=== PATIENT | female | born 1975 | race Caucasian/White ===

== ENCOUNTER 2017-09-06 18:15 | Inpatient (IN) | payer OTHER ==
[2017-09-06] VITALS (9 sets, daily range): BP systolic 116–143; BP diastolic 62–84; PULSE 76–90; RESP 15–20; TEMP 98.3; O2SAT 94–98
[~2017-09-06] VITALS: Ht 175.3 cm; Wt 82.2 kg
[~2017-09-06 18:15] MED LIST: ALPR1TAB3 PO; ATEN-100 PO; DICY1TAB26 PO; GABA600T PO; HYDR-3533 PO
[2017-09-06] MEDS ORDERED: IOHEXOL 350 MG/ML 10 ML VIAL (for RAD DIAG) IVCONTRAST ONE (18:37)
[2017-09-06 18:48] LABS: PROTHROMBIN TIME - PATIENT 10.2 SEC (9.8-11.6)
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
[2017-09-06] MEDS ORDERED: CHLORHEXIDINE GLUCONATE 2 % 1 PACK (2 CLOTHS) TOP PRN (19:00)
[2017-09-06] MEDS ORDERED: MISCELLANEOUS NURSING INFORMATION XX SCH (19:00)
[2017-09-06] MEDS ORDERED: MORPHINE SULFATE 4 MG/ML INJ IV PUSH PRN (19:00)
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
[2017-09-06] MEDS: ACETAMINOPHEN 1000 MG/100 ML 100 ML IV SCH (20:37)
[2017-09-06] MEDS: LACTATED RINGER'S 1000 ML INJ 1,000 ML IV SCH (20:46)
[2017-09-06] MEDS: DOCUSATE SODIUM 100 MG CAP PO SCH (21:00)
[2017-09-06] MEDS: MORPHINE SULFATE 8 MG/ML INJ IV PUSH PRN (21:39)
[2017-09-06 23:19] LABS: AUTOMATED NEUTROPHIL # 11.9 TH/MM3 (1.8-7.7); BASOPHIL # 0.2 TH/MM3 (0-0.2); BASOPHIL % 1.1 % (0.0-2.0); EOSINOPHIL # 0.1 TH/MM3 (0-0.4); EOSINOPHIL % 0.5 % (0.0-4.0); HEMATOCRIT 40.4 % (35.0-46.0); HEMOGLOBIN 13.7 GM/DL (11.6-15.3); LYMPH % 15.7 % (9.0-44.0); LYMPHOCYTE # 2.4 TH/MM3 (1.0-4.8); MEAN CELL VOLUME 89.3 FL (80.0-100.0); MEAN CORPUSCULAR HEMOGLOBIN 30.4 PG (27.0-34.0); MEAN PLATELET VOLUME 8.5 FL (7.0-11.0); MONO % 5.8 % (0.0-8.0); MONOCYTE # 0.9 TH/MM3 (0-0.9); NEUT % 76.9 % (16.0-70.0); PLATELET COUNT 318 TH/MM3 (150-450); RED BLOOD COUNT 4.52 MIL/MM3 (4.00-5.30); RED CELL DISTRIBUTION WIDTH 13.5 % (11.6-17.2); WHITE BLOOD COUNT 15.5 TH/MM3 (4.0-11.0)
[2017-09-07] MEDS: MORPHINE SULFATE 8 MG/ML INJ IV PUSH PRN ×4 (00:21→09:34)
[2017-09-07] MEDS: ACETAMINOPHEN 1000 MG/100 ML 100 ML IV SCH ×3 (00:29→13:43)
[2017-09-07] MEDS ORDERED: CHLORHEXIDINE GLUCONATE 2 % 1 PACK (2 CLOTHS) TOP SCH (04:00)
[2017-09-07] MEDS: LACTATED RINGER'S 1000 ML INJ 1,000 ML IV SCH (06:32)
[2017-09-07] MEDS ORDERED: MORPHINE SULFATE 4 MG/ML INJ IV PUSH ONE (07:35)
[2017-09-07 07:45] VITALS: BP 108/64; PULSE 77; RESP 19; TEMP 98.4; O2SAT 96
[2017-09-07 08:17] VITALS: O2SAT 98
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
[2017-09-07] MEDS: DOCUSATE SODIUM 100 MG CAP PO SCH (09:00)
[2017-09-07] MEDS ORDERED: POVIDONE IODINE 5% (ANTISEPSIS KIT) 4 APPLICATIONS EACH NARE PRN (10:00)
[2017-09-07] MEDS ORDERED: CHLORHEXIDINE GLUCONATE 2 % 1 PACK (2 CLOTHS) TOPICAL PRN (10:00)
[2017-09-07] MEDS ORDERED: SODIUM CHLORID 0.9% 500 ML IV PRN (10:00)
[2017-09-07] MEDS ORDERED: LACTATED RINGER'S 1000 ML IV PRN (10:00)
[2017-09-07] MEDS ORDERED: HYDROmorphone HCL PF 2 MG/ML VIAL IV PUSH PRN (10:00)
[2017-09-07] MEDS ORDERED: METOPROLOL TARTRATE 25 MG TAB PO PRN (10:00)
[2017-09-07 10:26] LABS: BICARBONATE 25.6 MEQ/L (21.0-32.0); CALCIUM 8.4 MG/DL (8.5-10.1); CREATININE 0.55 MG/DL (0.50-1.00)
[2017-09-07 10:27] LABS: AUTOMATED NEUTROPHIL # 7.6 TH/MM3 (1.8-7.7); BASOPHIL # 0.1 TH/MM3 (0-0.2); BASOPHIL % 0.9 % (0.0-2.0); EOSINOPHIL # 0.1 TH/MM3 (0-0.4); EOSINOPHIL % 0.7 % (0.0-4.0); HEMATOCRIT 36.8 % (35.0-46.0); HEMOGLOBIN 12.9 GM/DL (11.6-15.3); LYMPH % 16.8 % (9.0-44.0); LYMPHOCYTE # 1.8 TH/MM3 (1.0-4.8); MEAN CELL VOLUME 89.6 FL (80.0-100.0); MEAN CORPUSCULAR HEMOGLOBIN 31.4 PG (27.0-34.0); MEAN PLATELET VOLUME 8.7 FL (7.0-11.0); MONO % 9.3 % (0.0-8.0); NEUT % 72.3 % (16.0-70.0); PLATELET COUNT 259 TH/MM3 (150-450); RED BLOOD COUNT 4.11 MIL/MM3 (4.00-5.30); RED CELL DISTRIBUTION WIDTH 13.6 % (11.6-17.2); WHITE BLOOD COUNT 10.5 TH/MM3 (4.0-11.0)
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
[2017-09-07] MEDS: HYDROmorphone HCL PF 2 MG/ML VIAL IV PUSH PRN ×3 (11:13→17:13)
[2017-09-07] MEDS ORDERED: DEXAMETHASONE SOD PHOS 4 MG/ML VIAL IV ONE (12:00)
[2017-09-07] MEDS ORDERED: LIDOCAINE HCL 1% PF 5 ML SYRINGE OTHER ONE (12:00)
[2017-09-07] MEDS ORDERED: ONDANSETRON HCL 4 MG/2 ML VIAL IV PUSH ONE (12:00)
[2017-09-07] MEDS ORDERED: ePHEDrine/NS 25 MG/5 ML SYRINGE IV ONE (12:00)
[2017-09-07] MEDS ORDERED: LACTATED RINGER'S 1000 ML INJ 1,000 ML IV ONE (12:00)
[2017-09-07] MEDS ORDERED: PHENYLEPH/NS 1000 MCG/10 ML SYR IV ONE (12:00)
[2017-09-07] MEDS ORDERED: ceFAZolin INJ 1,000 MG VIAL IV ONE ×2 (12:00→19:40)
[2017-09-07] MEDS ORDERED: PROPOFOL 200 MG/20 ML AMP IV ONE (12:00)
[2017-09-07 12:43] VITALS: BP 115/64; PULSE 66; RESP 18; TEMP 98.3; O2SAT 96
[2017-09-07 16:16] VITALS: BP 124/74; PULSE 78; RESP 18; TEMP 98.4; O2SAT 97
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
[2017-09-07] MEDS ORDERED: ENALAPRILAT 1.25 MG/ML VIAL IV PUSH PRN (19:15)
[2017-09-07] MEDS ORDERED: ONDANSETRON HCL 4 MG/2 ML VIAL IV PUSH PRN (19:15)
[2017-09-07] MEDS ORDERED: LACTULOSE SYRUP 20 GM/30 ML CUP PO PRN (19:15)
[2017-09-07] MEDS ORDERED: ACETAMINOPHEN 325 MG TAB PO PRN (19:15)
[2017-09-07] MEDS: BACITRACIN TOP OINT 15 GM TUBE TOP SCH (21:00)
[2017-09-07] MEDS: DOCUSATE SODIUM 50 MG/SENNA 8.6 MG TAB PO SCH (21:00)
[2017-09-07] MEDS ORDERED: DO NOT ADM ANY ANTICOAGULANT DRUGS PRN (22:00)
[2017-09-07] MEDS: METHOCARBAMOL 500 MG TAB PO SCH (22:00)
--- NOTE | 2017-09-07 22:09 | RADRPT ---
EXAM DATE/TIME: 09/07/2017 21:05 [facility] COMPARISON: No previous studies available for comparison. INDICATIONS : Right ankle ORIF. MEDICAL HISTORY : None. SURGICAL HISTORY : None. ENCOUNTER: Initial ACUITY: 1 day PAIN SCORE: Non-responsive. LOCATION: Right Ankle. FINDINGS: 4 images from the OR have been submitted. There is a plate along the lateral distal fibula. There are 2 screws seen through the medial malleolus. A long screw is seen to extend through the lateral plate , the distal fibula and the distal tibia. On the final images, the ankle is well aligned. The hardwar e is well-placed. CONCLUSION: Successful ORIF. Jacoby Bolton MD on September 07, 2017 at 22:06 Board Certified Radiologist. This report was verified electronically.
[2017-09-07] MEDS ORDERED: ACETAMINOPHEN/HYDROcodone 325 MG/10 MG TAB PO PRN (22:15)
[2017-09-07] MEDS ORDERED: MORPHINE SULFATE 4 MG/ML INJ ONE (22:17)
[2017-09-07] MEDS ORDERED: *MEPERIDINE 25 MG INJ VIAL PERIprocedural Use ONLY ONE (22:19)
[2017-09-07] MEDS ORDERED: *morphine SULFATE 8 MG/ML PERIprocedure ONLY ONE (22:36)
[2017-09-08] VITALS (7 sets, daily range): BP systolic 127–136; BP diastolic 66–80; PULSE 79–91; RESP 18–21; TEMP 97.8–99.4; O2SAT 93–97
[2017-09-08] MEDS: HYDROmorphone HCL PF 2 MG/ML VIAL IV PUSH PRN ×5 (02:21→20:03)
[2017-09-08 04:15] LABS: AUTOMATED NEUTROPHIL # 10.7 TH/MM3 (1.8-7.7); BASOPHIL # 0.1 TH/MM3 (0-0.2); BASOPHIL % 0.4 % (0.0-2.0); HEMATOCRIT 36.2 % (35.0-46.0); HEMOGLOBIN 12.2 GM/DL (11.6-15.3); LYMPH % 6.5 % (9.0-44.0); LYMPHOCYTE # 0.8 TH/MM3 (1.0-4.8); MEAN CELL VOLUME 88.9 FL (80.0-100.0); MEAN CORPUSCULAR HEMOGLOBIN 30.1 PG (27.0-34.0); MEAN CORPUSCULAR HGB CONC 33.8 % (32.0-36.0); MEAN PLATELET VOLUME 8.6 FL (7.0-11.0); MONO % 6.7 % (0.0-8.0); MONOCYTE # 0.8 TH/MM3 (0-0.9); NEUT % 86.4 % (16.0-70.0); PLATELET COUNT 249 TH/MM3 (150-450); RED BLOOD COUNT 4.07 MIL/MM3 (4.00-5.30); RED CELL DISTRIBUTION WIDTH 13.6 % (11.6-17.2); WHITE BLOOD COUNT 12.4 TH/MM3 (4.0-11.0)
[2017-09-08] MEDS: ACETAMINOPHEN/HYDROcodone 325 MG/10 MG TAB PO PRN ×5 (04:21→23:48)
[2017-09-08 04:35] LABS: BICARBONATE 25.8 MEQ/L (21.0-32.0); CALCIUM 8.1 MG/DL (8.5-10.1); CREATININE 0.46 MG/DL (0.50-1.00)
[2017-09-08] MEDS: ENOXAPARIN SODIUM 40 MG/0.4 ML SYRINGE SQ SCH (06:14)
[2017-09-08] MEDS: METHOCARBAMOL 500 MG TAB PO SCH ×3 (06:15→20:04)
[2017-09-08] MEDS: DOCUSATE SODIUM 50 MG/SENNA 8.6 MG TAB PO SCH ×2 (08:16→20:04)
[2017-09-08] MEDS: GABAPENTIN 300 MG CAP PO SCH ×3 (08:16→16:27)
[2017-09-08] MEDS: BACITRACIN TOP OINT 15 GM TUBE TOP SCH ×3 (08:20→20:04)
[2017-09-08] MEDS: fentaNYL 50 MCG/HR PATCH T-DERMAL SCH (12:47)
[2017-09-08] MEDS: KETOROLAC TROMETHAMINE 30 MG/ML (IVP) VIAL IV PUSH SCH ×3 (12:49→23:47)
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
--- NOTE | 2017-09-08 16:43 | RADRPT ---
EXAM DATE/TIME: 09/08/2017 14:58 [facility] COMPARISON: No previous studies available for comparison. INDICATIONS : Bilateral upper extremity numbness. MEDICAL HISTORY : Carcinoma, cervical SURGICAL HISTORY : section. ENCOUNTER: Initial ACUITY: 1 day PAIN SCORE: 0/10 LOCATION: Paraspinal TECHNIQUE: Multiplanar, multisequence MRI examination of the cervical spine was performed. FINDINGS: At C2-3-4 there is no significant abnormality At C4-5 there is a mild posterior disc bulge with a small focal protrusion on the left side resulting in a minimal impression on the left hemicord and mild narrowing of the left lateral recess. At C5-6 is a broad-based posterior disc protrusion, slightly worse on the right side with mild AP can al stenosis and mild impression on the right hemicord. No significant foraminal stenosis. At C6-C7-T1 there is no significant abnormality. Normal alignment. No cord signal abnormalities. No prevertebral soft tissue swelling. CONCLUSION: 1. At C5-6 broad-based posterior disc protrusion slightly worse on the right side results in mild AP canal stenosis and mild compression on the right hemicord. 2. At C4-5 mild posterior disc bulge with small left paracentral protrusion results in a minimal impr ession on the left hemicord. Margarito Soriano MD on September 08, 2017 at 16:37 Board Certified Radiologist. This report was verified electronically.
[2017-09-09] VITALS (7 sets, daily range): BP systolic 117–163; BP diastolic 63–93; PULSE 81–94; RESP 18–21; TEMP 98–98.5; O2SAT 94–98
[2017-09-09] MEDS: HYDROmorphone HCL PF 2 MG/ML VIAL IV PUSH PRN ×4 (01:02→20:56)
[2017-09-09] MEDS: ACETAMINOPHEN/HYDROcodone 325 MG/10 MG TAB PO PRN ×4 (04:08→23:32)
[2017-09-09] MEDS: METHOCARBAMOL 500 MG TAB PO SCH ×3 (06:08→22:00)
[2017-09-09] MEDS: ENOXAPARIN SODIUM 40 MG/0.4 ML SYRINGE SQ SCH (06:08)
[2017-09-09] MEDS: KETOROLAC TROMETHAMINE 30 MG/ML (IVP) VIAL IV PUSH SCH ×4 (06:09→23:32)
[2017-09-09] MEDS: GABAPENTIN 300 MG CAP PO SCH ×3 (08:20→18:11)
[2017-09-09] MEDS: BACITRACIN TOP OINT 15 GM TUBE TOP SCH ×2 (08:22→21:00)
[2017-09-09] MEDS: DOCUSATE SODIUM 50 MG/SENNA 8.6 MG TAB PO SCH ×2 (08:22→20:51)
--- NOTE | 2017-09-09 12:10 | PD.POD ---
Subjective Podiatric Problems POD #2 right ankle bimalleolar, syndesmotic stabilization and deltoid repair. Pt states her pain is still very present, but well controlled with pain meds. She denies any n/v/f/h/c/sob. Pain score: 7 Past Med/Surg/Social History Social History Smoking Status: Current Every Day Smoker Objective Vital Signs Vital Signs Date Time Temp Pulse Resp B/P (MAP) Pulse Ox O2 Delivery O2 Flow Rate FiO2 09/09/17 08:00 98.0 94 18 124/63 (83) 98 09/09/17 07:00 18 09/09/17 04:48 19 09/09/17 04:00 98.5 81 20 128/70 (89) 97 09/09/17 01:35 18 09/09/17 00:00 98.5 83 20 117/63 (81) 98 09/08/17 22:06 Room Air 09/08/17 20:00 99.4 88 21 130/67 (88) 96 09/08/17 16:00 98.4 84 18 134/78 (96) 95 09/08/17 12:00 98.1 91 21 136/79 (98) 97 Coded Allergies: diphenhydramine (Verified Adverse Reaction, Severe, 09/07/17) Physical Exam Remarks RLE incision sites are well coapted all mandy in tact, mod edema, mild sanginous drainage, mild ecchymosis, calf is supple and non tender to compression Assessment & Plan A/P 1) RLE POD # 2 right ankle ORIF 2) LLE grade II ankle sprain -ice and elevate b/l LE -NWBing RLE, WBAT in CAM LLE -cont pain meds as per trauma doc -ok for d/c from podiatry standpoint once cleared by PT -needs 6 weeks of lovenox on d/c -f/u with 1 week after d/c Brianne Bhagat DPM Sep 09, 2017 12:10
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
[2017-09-09] MEDS ORDERED: XANA1TAB2 PO (19:25)
[2017-09-09] MEDS: ALPRAZolam 1 MG TAB PO PRN (20:51)
[2017-09-10] VITALS (8 sets, daily range): BP systolic 104–148; BP diastolic 64–88; PULSE 82–92; RESP 18–19; TEMP 98.2–98.8; O2SAT 94–99
[2017-09-10] MEDS: ACETAMINOPHEN/HYDROcodone 325 MG/10 MG TAB PO PRN ×5 (03:27→23:47)
[2017-09-10] MEDS: METHOCARBAMOL 500 MG TAB PO SCH ×3 (05:11→22:49)
[2017-09-10] MEDS: ALPRAZolam 1 MG TAB PO PRN ×2 (05:11→20:24)
[2017-09-10] MEDS: KETOROLAC TROMETHAMINE 30 MG/ML (IVP) VIAL IV PUSH SCH ×4 (05:11→23:47)
[2017-09-10] MEDS: ENOXAPARIN SODIUM 40 MG/0.4 ML SYRINGE SQ SCH (06:04)
[2017-09-10] MEDS: DOCUSATE SODIUM 50 MG/SENNA 8.6 MG TAB PO SCH ×2 (07:32→20:24)
[2017-09-10] MEDS: GABAPENTIN 300 MG CAP PO SCH ×3 (07:32→17:36)
[2017-09-10] MEDS: BACITRACIN TOP OINT 15 GM TUBE TOP SCH ×2 (07:34→21:00)
[2017-09-10] MEDS: HYDROmorphone HCL PF 2 MG/ML VIAL IV PUSH PRN ×3 (10:49→20:24)
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
[2017-09-10] MEDS ORDERED: RESP: ALBUTEROL 2.5 MG/IPRATROPIUM 0.5 MG NEB (PRN) NEB (14:00)
--- NOTE | 2017-09-10 14:43 | RADRPT ---
EXAM DATE/TIME: 09/10/2017 13:13 [facility] COMPARISON: No previous studies available for comparison. INDICATIONS : Vision changes. Dizziness. MEDICAL HISTORY : Hernia, hiatal. Arthritis. Hypertension. Thyroid disease. Syncope. Migraines. Chest pain. Cervical ca ncer. Paresthesia. Anxiety. SURGICAL HISTORY : section. Chest tube. ENCOUNTER: Initial ACUITY: 1 day PAIN SCORE: 0/10 LOCATION: Bilateral neck PEAK SYSTOLIC VELOCITIES (cm/sec): ICA/CCA RATIO: Right: 1.4 Left: 0.9 ICA: Right: 81 Left: 81 CCA: Right: 59 Left: 85 ECA: Right: 72 Left: 74 VERTEBRAL: Right: 63 antegrade Left: 50 antegrade Elevated flow velocities and ICA/CCA ratios have been found to correlate with increased degrees of vessel stenosis, calculated as percentage of diameter relative to a normal segment of distal ICA/CCA FINDINGS: RIGHT CAROTID: No significant stenosis is visualized. The waveforms are within normal limits. LEFT CAROTID: No significant stenosis is visualized. The waveforms are within normal limits. VERTEBRAL ARTERIES: Antegrade flow is seen in both vertebral arteries. MISCELLANEOUS: None. CONCLUSION: 1. Negative examination. Calixto Basilio MD on September 10, 2017 at 14:40 Board Certified Radiologist. This report was verified electronically.
[2017-09-11 00:15] VITALS: BP 141/72; PULSE 94; RESP 18; TEMP 97.4; O2SAT 96
[2017-09-11] MEDS: HYDROmorphone HCL PF 2 MG/ML VIAL IV PUSH PRN ×4 (03:47→20:11)
[2017-09-11] MEDS: ALPRAZolam 1 MG TAB PO PRN ×2 (05:47→16:50)
[2017-09-11] MEDS: ACETAMINOPHEN/HYDROcodone 325 MG/10 MG TAB PO PRN ×4 (05:48→22:51)
[2017-09-11] MEDS: METHOCARBAMOL 500 MG TAB PO SCH ×3 (05:48→22:38)
[2017-09-11] MEDS: KETOROLAC TROMETHAMINE 30 MG/ML (IVP) VIAL IV PUSH SCH ×4 (05:48→23:50)
[2017-09-11] MEDS: ENOXAPARIN SODIUM 40 MG/0.4 ML SYRINGE SQ SCH (06:40)
[2017-09-11] MEDS ORDERED: ENOX40P SQ (07:40)
[2017-09-11] MEDS ORDERED: PERI PO (07:40)
[2017-09-11 08:00] VITALS: BP 109/70; PULSE 78; RESP 16; TEMP 97.7; O2SAT 98
[2017-09-11] MEDS: DOCUSATE SODIUM 50 MG/SENNA 8.6 MG TAB PO SCH ×2 (08:55→20:12)
[2017-09-11] MEDS: GABAPENTIN 300 MG CAP PO SCH ×3 (08:55→16:51)
[2017-09-11] MEDS: BACITRACIN TOP OINT 15 GM TUBE TOP SCH ×2 (08:57→21:00)
[2017-09-11] MEDS: REMOVE OLD DURAGESIC (FENTANYL) PATCH T-DERMAL SCH (11:11)
[2017-09-11] MEDS: fentaNYL 50 MCG/HR PATCH T-DERMAL SCH (11:11)
[2017-09-11 12:00] VITALS: BP 145/70; PULSE 89; RESP 16; TEMP 99.3; O2SAT 97
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
[2017-09-11 16:00] VITALS: BP 114/73; PULSE 89; RESP 16; TEMP 98.3; O2SAT 97
[2017-09-11 19:12] VITALS: BP 134/63; PULSE 92; RESP 18; TEMP 98.3; O2SAT 98
[2017-09-11 23:58] VITALS: BP 130/69; PULSE 81; RESP 18; TEMP 98.3; O2SAT 96
[2017-09-12] MEDS: ACETAMINOPHEN/HYDROcodone 325 MG/10 MG TAB PO PRN ×4 (03:59→19:18)
[2017-09-12] MEDS: ALPRAZolam 1 MG TAB PO PRN ×2 (03:59→11:57)
[2017-09-12] MEDS: METHOCARBAMOL 500 MG TAB PO SCH ×3 (05:31→22:29)
[2017-09-12] MEDS: KETOROLAC TROMETHAMINE 30 MG/ML (IVP) VIAL IV PUSH SCH ×2 (05:33→11:58)
[2017-09-12] MEDS: ENOXAPARIN SODIUM 40 MG/0.4 ML SYRINGE SQ SCH (06:21)
[2017-09-12 08:00] VITALS: BP 101/58; PULSE 73; RESP 16; TEMP 97.2; O2SAT 94
[2017-09-12] MEDS: DOCUSATE SODIUM 50 MG/SENNA 8.6 MG TAB PO SCH ×2 (08:18→21:00)
[2017-09-12] MEDS: GABAPENTIN 300 MG CAP PO SCH ×3 (08:18→17:49)
[2017-09-12] MEDS: HYDROmorphone HCL PF 2 MG/ML VIAL IV PUSH PRN ×5 (08:19→21:33)
[2017-09-12] MEDS: BACITRACIN TOP OINT 15 GM TUBE TOP SCH ×2 (08:19→21:16)
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
[2017-09-12 12:00] VITALS: BP 105/69; PULSE 99; RESP 16; TEMP 98.4; O2SAT 97
[2017-09-12 13:41] LABS: HEMATOCRIT 33.6 % (35.0-46.0); HEMOGLOBIN 11.3 GM/DL (11.6-15.3); MEAN CELL VOLUME 89.3 FL (80.0-100.0); MEAN CORPUSCULAR HGB CONC 33.5 % (32.0-36.0); MEAN PLATELET VOLUME 7.9 FL (7.0-11.0); PLATELET COUNT 335 TH/MM3 (150-450); RED BLOOD COUNT 3.76 MIL/MM3 (4.00-5.30); RED CELL DISTRIBUTION WIDTH 13.3 % (11.6-17.2); WHITE BLOOD COUNT 9.1 TH/MM3 (4.0-11.0)
[2017-09-12] MEDS ORDERED: PANTOPRAZOLE SODIUM 40 MG VIAL IV PUSH SCH (14:00)
[2017-09-12 16:00] VITALS: BP 103/60; PULSE 85; RESP 16; TEMP 98.3; O2SAT 97
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
[2017-09-12] MEDS: PANTOPRAZOLE INJ 80 MG in SODIUM CHLORIDE 0.9% INJ 100 ML IV SCH (17:49)
[2017-09-12 20:00] VITALS: BP 111/57; PULSE 101; RESP 16; TEMP 98.9; O2SAT 96
[2017-09-12] MEDS: ONDANSETRON HCL 4 MG/2 ML VIAL IV PUSH PRN (21:15)
[2017-09-12] MEDS ORDERED: LORazepam 2 MG/ML VIAL IV PUSH ONE (22:15)
--- NOTE | 2017-09-12 22:17 | HHI.NSPN ---
History Chief Complaint: right arm and shoulder pain Interval History Today she states that the right arm and shoulder pain is quite a bit better. Movement has improved Exam Results Vital Signs Date Time Temp Pulse Resp B/P (MAP) Pulse Ox O2 Delivery O2 Flow Rate FiO2 09/12/17 20:00 98.9 101 16 111/57 (75) 96 09/09/17 21:54 21 09/09/17 20:00 Room Air Intake and Output 09/12/17 09/12/17 09/12/17 07:59 15:59 23:59 Intake Total 840 ml 600 ml Balance 840 ml 600 ml Physical Examination Awake and alert. Appears less tearful and depressed today. Moderate discomfort over the right biceps and deltoid with active and passive right shoulder abduction and external rotation. Strength is mostly 3/5 right deltoid with complaint of pain with testing. 4/5 right biceps, 5/5 right triceps and hand intrinsics Good strength left upper extremity Angélica's response absent bilateral No Ankle clonus Medical Decision Making Impression and Plan Impression: 1. Right arm and shoulder pain-most likely deltoid-biceps tendinopathy. No definite cervical radiculopathy. Plan: Continue physical therapy Improving with present treatment No surgical intervention planned Wilfredo Contreras MD Sep 12, 2017 22:16
--- NOTE | 2017-09-12 22:17 | RADRPT ---
EXAM DATE/TIME: 09/12/2017 21:55 [facility] COMPARISON: No previous studies available for comparison. INDICATIONS : NG tube placement. MEDICAL HISTORY : Hernia, hiatal. Arthritis. Hypertension. Thyroid disease. Syncope. Cervical cancer. Paresthesia. SURGICAL HISTORY : section. Chest tube. ENCOUNTER: Subsequent ACUITY: 1 day PAIN SCORE: 0/10 LOCATION: Abdomen, upper quadrant. FINDINGS: Examination of the abdomen demonstrates a normal bowel gas pattern. Nasogastric tube in the antrum o f the stomach No free air is identified. No organomegaly is evident. Osseous structures are intact. CONCLUSION: NG tube in antrum. Joahn Basilio MD FACR on September 12, 2017 at 22:15 Board Certified Radiologist. This report was verified electronically.
[2017-09-12 23:32] LABS: HEMATOCRIT 30.4 % (35.0-46.0); HEMOGLOBIN 10.3 GM/DL (11.6-15.3)
[2017-09-13] VITALS (12 sets, daily range): BP systolic 97–125; BP diastolic 53–66; PULSE 100–124; RESP 11–20; TEMP 98.5–99.4; O2SAT 93–100
[2017-09-13] MEDS: HYDROmorphone HCL PF 2 MG/ML VIAL IV PUSH PRN ×7 (01:36→23:33)
[2017-09-13] MEDS: ONDANSETRON HCL 4 MG/2 ML VIAL IV PUSH PRN ×6 (01:37→23:34)
[2017-09-13] MEDS: ALPRAZolam 1 MG TAB PO PRN (01:37)
[2017-09-13] MEDS: METHOCARBAMOL 500 MG TAB PO SCH ×3 (03:39→22:00)
[2017-09-13] MEDS: LACTATED RINGER'S 1000 ML INJ 1,000 ML IV SCH ×3 (04:00→20:09)
[2017-09-13] MEDS: PANTOPRAZOLE INJ 80 MG in SODIUM CHLORIDE 0.9% INJ 100 ML IV SCH ×2 (04:09→16:05)
[2017-09-13 07:06] LABS: AUTOMATED NEUTROPHIL # 8.4 TH/MM3 (1.8-7.7); BASOPHIL # 0.1 TH/MM3 (0-0.2); BASOPHIL % 0.7 % (0.0-2.0); EOSINOPHIL # 0.1 TH/MM3 (0-0.4); EOSINOPHIL % 0.5 % (0.0-4.0); HEMATOCRIT 27.1 % (35.0-46.0); LYMPH % 16.7 % (9.0-44.0); LYMPHOCYTE # 1.9 TH/MM3 (1.0-4.8); MEAN CELL VOLUME 90.1 FL (80.0-100.0); MEAN CORPUSCULAR HEMOGLOBIN 30.1 PG (27.0-34.0); MEAN CORPUSCULAR HGB CONC 33.4 % (32.0-36.0); MEAN PLATELET VOLUME 8.5 FL (7.0-11.0); MONO % 6.9 % (0.0-8.0); MONOCYTE # 0.8 TH/MM3 (0-0.9); NEUT % 75.2 % (16.0-70.0); PLATELET COUNT 353 TH/MM3 (150-450); RED BLOOD COUNT 3.01 MIL/MM3 (4.00-5.30); RED CELL DISTRIBUTION WIDTH 13.3 % (11.6-17.2); WHITE BLOOD COUNT 11.2 TH/MM3 (4.0-11.0)
[2017-09-13 07:14] LABS: ALBUMIN 2.7 GM/DL (3.4-5.0); AST (GOT) 18 U/L (15-37); BICARBONATE 28.1 MEQ/L (21.0-32.0); BLOOD UREA NITROGEN 27 MG/DL (7-18); CALCIUM 8.4 MG/DL (8.5-10.1); CHLORIDE 102 MEQ/L (98-107); CREATININE 0.44 MG/DL (0.50-1.00); GLOMERULAR FILTRATION RATE 158 ML/MIN (>89); GLUCOSE,RANDOM 103 MG/DL (74-106); SODIUM (NA) 138 MEQ/L (136-145)
[2017-09-13 07:15] LABS: ALT (GPT) 21 U/L (10-53)
[2017-09-13 07:18] LABS: ALKALINE PHOSPHATASE 63 U/L (45-117); TOTAL BILIRUBIN ADULT 0.2 MG/DL (0.2-1.0); TOTAL PROTEIN 6.6 GM/DL (6.4-8.2)
[2017-09-13] MEDS: BACITRACIN TOP OINT 15 GM TUBE TOP SCH ×2 (09:00→21:00)
[2017-09-13] MEDS: DOCUSATE SODIUM 50 MG/SENNA 8.6 MG TAB PO SCH ×2 (09:00→21:00)
[2017-09-13] MEDS: GABAPENTIN 300 MG CAP PO SCH ×3 (09:00→18:00)
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
--- NOTE | 2017-09-13 11:56 | GIPROC ---
[facility] [address] [facility]. [facility], [address] EGD PROCEDURE REPORT EXAM DATE: 09/13/2017 PATIENT NAME: Alba Bar MR #: [id number] BIRTHDATE: 1975 ATTENDING: Litzy Santana MD ORDER #: [id number] UX INTERACTION DESIGNER: Richard Fairbanks and Jill Fuentes STATUS: inpatient INDICATIONS: The patient is a 41 yr old female here for an EGD due to hematemesis and acute post hemorrhagic anemia PROCEDURE PERFORMED: EGD w/ control of bleeding MEDICATIONS: Per Anesthesia and None. TOPICAL ANESTHETIC: CONSENT: The patient understands the risks and benefits of the procedure and understands that these risks include, but are not limited to: sedation, allergic reaction, infection, perforation and/or bleeding. Alternative means of evaluation and treatment include, among others: physical exam, x-rays, and/or surgical intervention. The patient elects to proceed with this endoscopic procedure. medical equipment was checked for proper function. Hand hygiene and appropriate measures for infection prevention was taken. After the risks, benefits and alternatives of the procedure were thoroughly explained, Informed consent was verified, confirmed and timeout was successfully executed by the treatment team. The patient was anesthetized with topical anesthesia and the Pentax EG-[id number] endoscope was introduced through the mouth and advanced to the second portion of the duodenum. Retroflexed views revealed Retained fluid/ food The gastroscope was then slowly withdrawn and removed. ESOPHAGUS: The mucosa of the esophagus appeared normal. DUODENUM: The duodenal mucosa appeared normal. STOMACH: A large non-bleeding and deep ulcer, measuring 15 x 20mm in size, with heaped up edges and a red spot was found in the prepyloric region of the stomach. Submucosal injection of 5ml of epinephrine 1:10,000 was performed around the bleeding site with complete hemostasis achieved. ADVERSE EVENTS: There were no complications. IMPRESSIONS: 1. The esophagus appeared normal 2. Normal duodenal mucosa 3. Large ulcer, measuring 15 x 20mm in size, was found in the prepyloric region of the stomach; Submucosal injection of 5ml of epinephrine 1:10,000 was performed around the bleeding site 4. Retroflexed views revealed Retained fluid/ food RECOMMENDATIONS: 1. Continue PPI 2. Avoid NSAIDS 3. Monitor labs. NG to L.I.S 4. Reglan 10 mg tid ac PATIENT CONDITION: stable DISPOSITION: Inpatient REPEAT EXAM: Return 1 day EGD Litzy Santana MD eSigned: Litzy Santana MD 09/13/2017 11:55 AM cc: PATIENT NAME: Yosvany Alba M MR#: [id number]
[2017-09-13] MEDS ORDERED: PHENYLEPH/NS 1000 MCG/10 ML SYR IV ONE (12:00)
[2017-09-13] MEDS ORDERED: LIDOCAINE HCL 1% PF 5 ML SYRINGE OTHER ONE (12:00)
[2017-09-13] MEDS ORDERED: PROPOFOL 200 MG/20 ML AMP IV ONE (12:00)
[2017-09-13] MEDS ORDERED: ESMOLOL HCL 100 MG/10 ML VIAL IV ONE (12:00)
[2017-09-13] MEDS ORDERED: ceFAZolin INJ 1,000 MG VIAL IV ONE (12:00)
[2017-09-13] MEDS ORDERED: DO NOT ADM ANY ANTICOAGULANT DRUGS PRN (12:00)
[2017-09-13] MEDS ORDERED: ePHEDrine/NS 25 MG/5 ML SYRINGE IV ONE (12:00)
[2017-09-13] MEDS ORDERED: ONDANSETRON HCL 4 MG/2 ML VIAL IV ONE (12:00)
[2017-09-13] MEDS ORDERED: SUCCINYLCHOLINE CHLORIDE 200 MG/10 ML VIAL IV ONE (12:00)
[2017-09-13] MEDS ORDERED: DEXAMETHASONE SOD PHOS 4 MG/ML VIAL IV ONE (12:00)
[2017-09-13] MEDS ORDERED: GLYCOPYRROLATE 1 MG/5 ML SYRINGE IV PUSH ONE (12:00)
[2017-09-13] MEDS ORDERED: *morphine SULFATE 4 MG/ML PERIprocedure ONLY ONE (12:10)
[2017-09-13] MEDS ORDERED: *PROMETHAZINE 25 MG/ML VIAL PERIprocedural use ONLY ONE (12:15)
[2017-09-13] MEDS: LORazepam 2 MG/ML VIAL IV PUSH PRN ×3 (13:31→23:34)
[2017-09-13] MEDS ORDERED: EPINEPHrine HCL (1:10,000) 1 MG/10 ML SYRINGE OTHER ONE (17:21)
[2017-09-14] VITALS (16 sets, daily range): BP systolic 98–113; BP diastolic 50–57; PULSE 82–107; RESP 11–34; TEMP 98.2–98.9; O2SAT 93–100
[2017-09-14] MEDS: PANTOPRAZOLE INJ 80 MG in SODIUM CHLORIDE 0.9% INJ 100 ML IV SCH ×3 (00:29→21:30)
[2017-09-14] MEDS: HYDROmorphone HCL PF 2 MG/ML VIAL IV PUSH PRN ×7 (00:59→20:47)
[2017-09-14] MEDS: LACTATED RINGER'S 1000 ML INJ 1,000 ML IV SCH ×3 (03:35→21:31)
[2017-09-14] MEDS: METHOCARBAMOL 500 MG TAB PO SCH ×3 (03:35→20:46)
[2017-09-14] MEDS: LORazepam 2 MG/ML VIAL IV PUSH PRN ×4 (04:33→20:46)
[2017-09-14 04:54] LABS: AUTOMATED NEUTROPHIL # 4.9 TH/MM3 (1.8-7.7); BASOPHIL # 0.1 TH/MM3 (0-0.2); EOSINOPHIL # 0.1 TH/MM3 (0-0.4); EOSINOPHIL % 1.7 % (0.0-4.0); LYMPH % 22.6 % (9.0-44.0); LYMPHOCYTE # 1.7 TH/MM3 (1.0-4.8); MEAN CELL VOLUME 89.4 FL (80.0-100.0); MEAN CORPUSCULAR HEMOGLOBIN 30.5 PG (27.0-34.0); MEAN CORPUSCULAR HGB CONC 34.1 % (32.0-36.0); MEAN PLATELET VOLUME 8.3 FL (7.0-11.0); MONO % 7.6 % (0.0-8.0); MONOCYTE # 0.6 TH/MM3 (0-0.9); NEUT % 67.1 % (16.0-70.0); PLATELET COUNT 264 TH/MM3 (150-450); RED BLOOD COUNT 2.12 MIL/MM3 (4.00-5.30); RED CELL DISTRIBUTION WIDTH 12.8 % (11.6-17.2); WHITE BLOOD COUNT 7.3 TH/MM3 (4.0-11.0)
[2017-09-14 04:59] LABS: ALBUMIN 2.3 GM/DL (3.4-5.0); ALKALINE PHOSPHATASE 49 U/L (45-117); ALT (GPT) 39 U/L (10-53); AST (GOT) 61 U/L (15-37); BICARBONATE 29.5 MEQ/L (21.0-32.0); BLOOD UREA NITROGEN 11 MG/DL (7-18); CALCIUM 7.8 MG/DL (8.5-10.1); CHLORIDE 104 MEQ/L (98-107); CREATININE 0.42 MG/DL (0.50-1.00); GLOMERULAR FILTRATION RATE 167 ML/MIN (>89); GLUCOSE,RANDOM 84 MG/DL (74-106); SODIUM (NA) 138 MEQ/L (136-145); TOTAL BILIRUBIN ADULT 0.2 MG/DL (0.2-1.0); TOTAL PROTEIN 5.6 GM/DL (6.4-8.2)
[2017-09-14 05:12] LABS: HEMOGLOBIN 6.5 GM/DL (11.6-15.3)
[2017-09-14] MEDS: ONDANSETRON HCL 4 MG/2 ML VIAL IV PUSH PRN ×2 (06:24→20:47)
[2017-09-14] MEDS: DOCUSATE SODIUM 50 MG/SENNA 8.6 MG TAB PO SCH ×2 (09:00→20:46)
[2017-09-14] MEDS: BACITRACIN TOP OINT 15 GM TUBE TOP SCH ×2 (09:00→20:48)
[2017-09-14] MEDS: GABAPENTIN 300 MG CAP PO SCH ×3 (09:00→18:00)
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
--- NOTE | 2017-09-14 12:39 | GIPROC ---
[facility] [address] [facility]. [facility] [place], [address] EGD PROCEDURE REPORT EXAM DATE: 09/14/2017 PATIENT NAME: Alba Bar MR #: [id number] BIRTHDATE: 1975 ATTENDING: Litzy Santana MD ORDER #: [id number] CORPORATE AFFAIRS MANAGER: Richard Fairbanks and Jill Fuentes STATUS: inpatient INDICATIONS: The patient is a 41 yr old female here for an EGD due to acute post hemorrhagic anemia PROCEDURE PERFORMED: EGD w/ ablation EGD w/ directed submucosal injection(s), any substance MEDICATIONS: None and Per Anesthesia. TOPICAL ANESTHETIC: CONSENT: The patient understands the risks and benefits of the procedure and understands that these risks include, but are not limited to: sedation, allergic reaction, infection, perforation and/or bleeding. Alternative means of evaluation and treatment include, among others: physical exam, x-rays, and/or surgical intervention. The patient elects to proceed with this endoscopic procedure. medical equipment was checked for proper function. Hand hygiene and appropriate measures for infection prevention was taken. After the risks, benefits and alternatives of the procedure were thoroughly explained, Informed consent was verified, confirmed and timeout was successfully executed by the treatment team. The patient was anesthetized with topical anesthesia and the Pentax EG-[id number] endoscope was introduced through the mouth and advanced to the second portion of the duodenum. Retroflexed views revealed no abnormalities The gastroscope was then slowly withdrawn and removed. ESOPHAGUS: There was LA Class A esophagitis noted. STOMACH: Three ranging between 5-9mm in size non-bleeding and deep ulcers with surrounding edema, heaped up edges, an adherent clot and a visible vessel were found in the prepyloric region of the stomach. Submucosal injection of 2ml of epinephrine 1:10,000 was performed around the bleeding site with complete hemostasis achieved. Argon plasma coagulation was applied to the sites. With complete hemostasis achieved. DUODENUM: The duodenal mucosa appeared normal. ADVERSE EVENTS: There were no complications. IMPRESSIONS: 1. There was LA Class A esophagitis noted 2. Three ranging between 5-9mm in size ulcers were found in the prepyloric region of the stomach; Submucosal injection of 2ml of epinephrine 1:10,000 was performed around the bleeding site; Argon plasma coagulation was applied to the sites; with complete hemostasis achieved 3. Normal duodenal mucosa 4. Retroflexed views revealed no abnormalities RECOMMENDATIONS: 1. Anti-reflux regimen 2. Continue PPI 3. Avoid NSAIDS PATIENT CONDITION: stable DISPOSITION: Inpatient REPEAT EXAM: Return 4 weeks EGD Litzy Santana MD eSigned: Litzy Santana MD 09/14/2017 12:38 PM cc: PATIENT NAME: Alba Bar MR#: [id number]
[2017-09-14] MEDS: REMOVE OLD DURAGESIC (FENTANYL) PATCH T-DERMAL SCH (13:00)
[2017-09-14] MEDS ORDERED: *morphine SULFATE 4 MG/ML PERIprocedure ONLY ONE (13:04)
[2017-09-14] MEDS: fentaNYL 50 MCG/HR PATCH T-DERMAL SCH (14:00)
[2017-09-14 14:56] LABS: HEMATOCRIT 25.4 % (35.0-46.0); HEMOGLOBIN 8.9 GM/DL (11.6-15.3)
[2017-09-14] MEDS ORDERED: EPINEPHrine HCL (1:10,000) 1 MG/10 ML SYRINGE OTHER ONE (16:33)
[2017-09-14 17:45] LABS: BILIRUBIN, URINE NEG (NEG); BLOOD, URINE TRACE (NEG); GLUCOSE,URINE NEG (NEG); KETONE, URINE 10 mg/dL (NEG); NITRITE,URINE NEG (NEG); PH, URINE 7.5 (5.0-8.5); SQUAMOUS EPITHELIAL CELL URINE 38 /hpf (0-5); URINE COLOR LIGHT-YELLOW (YELLW/STRAW); URINE LEUKOCYTE ESTERASE MOD (NEG); WHITE BLOOD CELL CLUMPS MOD
[2017-09-14] MEDS: ACETAMINOPHEN/HYDROcodone 325 MG/10 MG TAB PO PRN ×2 (18:25→23:06)
[2017-09-14 23:40] LABS: HEMATOCRIT 25.4 % (35.0-46.0); HEMOGLOBIN 8.6 GM/DL (11.6-15.3)
[2017-09-15] VITALS (9 sets, daily range): BP systolic 106–149; BP diastolic 55–71; PULSE 90–106; RESP 14–21; TEMP 97.5–98.8; O2SAT 95–98
[2017-09-15] MEDS: LORazepam 2 MG/ML VIAL IV PUSH PRN (00:43)
[2017-09-15] MEDS: HYDROmorphone HCL PF 2 MG/ML VIAL IV PUSH PRN ×2 (00:43→09:53)
[2017-09-15] MEDS: METHOCARBAMOL 500 MG TAB PO SCH ×3 (04:09→21:43)
[2017-09-15] MEDS: PANTOPRAZOLE INJ 80 MG in SODIUM CHLORIDE 0.9% INJ 100 ML IV SCH ×2 (04:09→17:43)
[2017-09-15] MEDS: ACETAMINOPHEN/HYDROcodone 325 MG/10 MG TAB PO PRN ×4 (05:00→21:42)
[2017-09-15 05:03] LABS: BASOPHIL # 0.1 TH/MM3 (0-0.2); BASOPHIL % 0.9 % (0.0-2.0); EOSINOPHIL # 0.2 TH/MM3 (0-0.4); EOSINOPHIL % 2.3 % (0.0-4.0); LYMPH % 26.3 % (9.0-44.0); LYMPHOCYTE # 1.8 TH/MM3 (1.0-4.8); MEAN CELL VOLUME 87.7 FL (80.0-100.0); MEAN CORPUSCULAR HEMOGLOBIN 30.5 PG (27.0-34.0); MEAN CORPUSCULAR HGB CONC 34.8 % (32.0-36.0); MEAN PLATELET VOLUME 8.3 FL (7.0-11.0); MONO % 10.6 % (0.0-8.0); MONOCYTE # 0.7 TH/MM3 (0-0.9); NEUT % 59.9 % (16.0-70.0); PLATELET COUNT 249 TH/MM3 (150-450); RED BLOOD COUNT 2.63 MIL/MM3 (4.00-5.30); RED CELL DISTRIBUTION WIDTH 13.7 % (11.6-17.2); WHITE BLOOD COUNT 6.7 TH/MM3 (4.0-11.0)
[2017-09-15 05:14] LABS: BICARBONATE 31.9 MEQ/L (21.0-32.0); CALCIUM 8.2 MG/DL (8.5-10.1); CREATININE 0.52 MG/DL (0.50-1.00)
[2017-09-15] MEDS: BACITRACIN TOP OINT 15 GM TUBE TOP SCH ×2 (09:00→21:00)
[2017-09-15] MEDS: DOCUSATE SODIUM 50 MG/SENNA 8.6 MG TAB PO SCH ×2 (09:54→21:43)
[2017-09-15] MEDS: GABAPENTIN 300 MG CAP PO SCH (09:54)
[2017-09-15] MEDS: ONDANSETRON HCL 4 MG/2 ML VIAL IV PUSH PRN (09:54)
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
[2017-09-15] MEDS: GABAPENTIN 400 MG CAP PO SCH ×2 (13:41→17:47)
[2017-09-15] MEDS: ALPRAZolam 0.5 MG TAB PO PRN (15:00)
[2017-09-16 00:45] VITALS: BP 108/56; PULSE 90; RESP 17; TEMP 98; O2SAT 94
[2017-09-16] MEDS: ALPRAZolam 0.5 MG TAB PO PRN ×3 (01:00→18:25)
[2017-09-16] MEDS: ACETAMINOPHEN/HYDROcodone 325 MG/10 MG TAB PO PRN ×2 (01:00→05:55)
[2017-09-16] MEDS: PANTOPRAZOLE INJ 80 MG in SODIUM CHLORIDE 0.9% INJ 100 ML IV SCH (02:02)
[2017-09-16 05:10] LABS: HEMATOCRIT 24.8 % (35.0-46.0); HEMOGLOBIN 8.4 GM/DL (11.6-15.3)
[2017-09-16] MEDS: METHOCARBAMOL 500 MG TAB PO SCH ×3 (05:55→21:30)
[2017-09-16] MEDS ORDERED: XARE20TA PO (06:33)
[2017-09-16] MEDS ORDERED: ACETAMINOPHEN/HYDROcodone 325 MG/10 MG TAB PO PRN (06:45)
[2017-09-16 08:00] VITALS: BP 135/62; PULSE 85; RESP 16; TEMP 97.7; O2SAT 96
[2017-09-16] MEDS: BACITRACIN TOP OINT 15 GM TUBE TOP SCH ×2 (09:00→21:00)
[2017-09-16] MEDS: DOCUSATE SODIUM 50 MG/SENNA 8.6 MG TAB PO SCH ×2 (09:31→21:32)
[2017-09-16] MEDS: GABAPENTIN 400 MG CAP PO SCH (09:31)
--- NOTE | 2017-09-16 11:52 | HHI.GIFU ---
GI Follow-up Note Consult Follow-up Subjective: Patient laying in bed comfortably, no new complaints except chest and leg pain Objective: PHYSICAL EXAMINATION: Vitals signs stable No fever HEENT: Pupils round and reactive to light; normocephalic; atraumatic; no jaundice. Throat is clear. NECK: Neck is supple, no JVD, no lymphadenopathy. CHEST: Chest is clear to auscultation and percussion. CARDIAC: Regular rate and rhythm with no murmur gallop or rubs. ABDOMEN: Soft, nondistended, nontender; no hepatosplenomegaly; bowel sounds are present in all four quadrants. EXTREMITIES: No clubbing, cyanosis, or edema. SKIN: Normal; no rash; no jaundice. OIL GAS AND PIPE TESTER: No focal deficits; alert and oriented times three. Available Data (labs, X- Rays, Procedues) : Last Impressions Abdomen X-Ray 09/12/17 0000 Signed Impressions: Service Date/Time: Tuesday, September 12, 2017 21:55 - CONCLUSION: NG tube in antrum. Johan Basilio MD FACR Carotid Artery Ultrasound 09/10/17 0000 Signed Impressions: Service Date/Time: Sunday, September 10, 2017 13:13 - CONCLUSION: 1. Negative examination. Calixto Basilio MD Cervical Spine MRI 09/08/17 0000 Signed Impressions: Service Date/Time: Friday, September 08, 2017 14:58 - CONCLUSION: 1. At C5-6 broad-based posterior disc protrusion slightly worse on the right side results in mild AP canal stenosis and mild compression on the right hemicord. 2. At C4- 5 mild posterior disc bulge with small left paracentral protrusion results in a minimal impression on the left hemicord. Margarito Soriano MD Lower Extremity CT 09/07/17 0000 Signed Impressions: Service Date/Time: Thursday, September 07, 2017 10:09 - CONCLUSION: Trimalleolar fracture as described. Juan Alba MD Ankle X-Ray 09/07/17 0000 Signed Impressions: Service Date/Time: Thursday, September 07, 2017 21:05 - CONCLUSION: Successful ORIF. Jacoby Bolton MD Pelvis X-Ray 09/06/17 1820 Signed Impressions: Service Date/Time: August 18:15 - CONCLUSION: No acute disease. Jacoby Bolton MD Head CT 09/06/171819 Signed Impressions: Service Date/Time: August 18:33 - CONCLUSION: No acute disease. Jacoby Bolton MD Chest X-Ray 09/06/171819 Signed Impressions: Service Date/Time: August 18:15 - CONCLUSION: No acute disease. Jacoby Bolton MD Chest CT 09/06/171819 Signed Impressions: Service Date/Time: August 18:37 - CONCLUSION: No acute disease. Jacoby Bolton MD Cervical Spine CT 09/06/171819 Signed Impressions: Service Date/Time: August 18:33 - CONCLUSION: 1. No acute abnormality seen. 2. Decreased height and mild bulging at the C5-C6 level. The Jacoby Bolton MD Abdomen/Pelvis CT 09/06/171819 Signed Impressions: Service Date/Time: August 18:37 - CONCLUSION: No acute disease. Jacoby Bolton MD Laboratory Tests Test 09/14/17 14:24 09/14/17 22:52 09/15/17 03:42 09/16/17 04:35 Hemoglobin 8.9 GM/DL 8.6 GM/DL 8.0 GM/DL 8.4 GM/DL Hematocrit 25.4 % 25.4 % 23.0 % 24.8 % White Blood Count 6.7 TH/MM3 Red Blood Count 2.63 MIL/MM3 Mean Corpuscular Volume 87.7 FL Mean Corpuscular Hemoglobin 30.5 PG Mean Corpuscular Hemoglobin Concent 34.8 % Red Cell Distribution Width 13.7 % Platelet Count 249 TH/MM3 Mean Platelet Volume 8.3 FL Neutrophils (%) (Auto) 59.9 % Lymphocytes (%) (Auto) 26.3 % Monocytes (%) (Auto) 10.6 % Eosinophils (%) (Auto) 2.3 % Basophils (%) (Auto) 0.9 % Neutrophils # (Auto) 4.0 TH/MM3 Lymphocytes # (Auto) 1.8 TH/MM3 Monocytes # (Auto) 0.7 TH/MM3 Eosinophils # (Auto) 0.2 TH/MM3 Basophils # (Auto) 0.1 TH/MM3 CBC Comment DIFF FINAL Differential Comment Blood Urea Nitrogen 5 MG/DL Creatinine 0.52 MG/DL Random Glucose 108 MG/DL Calcium Level 8.2 MG/DL Sodium Level 140 MEQ/L Potassium Level 3.8 MEQ/L Chloride Level 103 MEQ/L Carbon Dioxide Level 31.9 MEQ/L Anion Gap 5 MEQ/L Estimat Glomerular Filtration Rate 131 ML/MIN Allergies Coded Allergies Type Severity Reaction Last Updated Verified bupropion Allergy Severe SUICIDAL THOUGHTS 01/23/17 No diphenhydramine Allergy Unknown 01/23/17 No Active Scripts Medications Dose Route/Sig Max Daily Dose Days Date Category Dose Instructions Xarelto (Rivaroxaban) 20 Mg Tab 10 Mg PO DAILY 09/16/17 Rx Xanax (Alprazolam) 1 Mg Tab 1 Mg PO Q8H 09/09/17 Reported Lortab 5 mg/325 mg (Hydrocodone/Acetaminophen 5 mg/325 mg) 1 Tab 1 Tab PO Q6H PRN 02/15/15 Rx Bentyl (Dicyclomine HCl) 20 Mg Tab 20 Mg PO Q6HR PRN 02/15/15 Rx FOR CRAMPS Gabapentin 600 Mg Tab 600 Mg PO TID 02/15/15 Reported Atenolol 25 Mg Tab 25 Mg PO TID 01/07/15 Reported Alprazolam 1 Mg Tab 1 Mg PO TID 01/07/15 Reported ASSESSMENT/PLAN:Seen and examined, no bleeding but diffuse pain all over. NSAIDs probably the reason for PUD. Advance diet. Gi bang betancourt dc in 02 weeks for gu egd. Discussed with Jamal HOUSTON. It was a pleasure seeing Alba Bar. Thank you for this consult. Entered by: Litzy Dobbins MD Sep 16, 2017 11:52
[2017-09-16 12:00] VITALS: BP 109/57; PULSE 80; RESP 16; TEMP 98.5; O2SAT 96
[2017-09-16] MEDS: GABAPENTIN 300 MG CAP PO SCH ×2 (12:30→18:25)
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
[2017-09-16] MEDS: ONDANSETRON HCL 4 MG/2 ML VIAL IV PUSH PRN ×2 (14:09→18:25)
--- NOTE | 2017-09-16 14:54 | PD.POD ---
Subjective Pain score: 7 Remarks Pain remains mainly on the right Past Med/Surg/Social History Social History Smoking Status: Current Every Day Smoker Objective Vital Signs Vital Signs Date Time Temp Pulse Resp B/P (MAP) Pulse Ox O2 Delivery O2 Flow Rate FiO2 09/16/17 12:00 98.5 80 16 109/57 (74) 96 09/16/17 09:54 Room Air 09/16/17 08:00 97.7 85 16 135/62 (86) 96 09/16/17 00:45 98.0 90 17 108/56 (73) 94 09/15/17 21:35 Room Air 09/15/17 20:10 98.8 105 16 127/71 (89) 96 09/15/17 16:00 98.2 97 17 149/55 (86) 98 Coded Allergies: bupropion (Unverified Allergy, Severe, SUICIDAL THOUGHTS, 01/23/17) claims this is not true anymore diphenhydramine (Unverified Allergy, Unknown, 01/23/17) Medications and IVs Administered Medications Medications (Trade) Dose Ordered Sig/Marika Route PRN Reason Start Time Stop Time Status Last Admin Dose Admin Senna/Docusate Sodium (Marilee-Colace) 2 tab BID PO 09/07/17 21:00 09/16/17 09:31 Bacitracin (Baciguent Oint) 1 applic Q12HR TOP 09/07/17 21:00 09/15/17 09:00 Lactulose (Lactulose Liq) 30 ml DAILY PRN PO constipation 09/07/17 19:15 09/11/17 08:57 Methocarbamol (Robaxin) 500 mg Q8HR PO 09/07/17 22:00 09/16/17 12:30 Enoxaparin Sodium (Lovenox Inj) 40 mg Q24H SQ 09/08/17 07:00 Future Hold 09/12/17 06:21 Fentanyl (Duragesic 50 Mcg Patch.72 Hr) 1 patch Q3D T-DERMAL 09/08/17 13:00 09/14/17 14:00 Miscellaneous Information 1 Q3D T-DERMAL 09/11/17 13:00 09/14/17 13:00 Ondansetron HCl (Zofran Inj) 4 mg Q4H PRN IV PUSH NAUSEA OR VOMITING 09/12/17 20:45 09/16/17 14:09 Alprazolam (Xanax) 0.5 mg Q8H PRN PO anxiety 09/15/17 13:00 09/16/17 09:31 Gabapentin (Neurontin) 600 mg TID PO 09/16/17 13:00 09/16/17 12:30 Oxycodone HCl (Roxicodone) 10 mg Q3HR PRN PO Pain > 3 09/16/17 11:00 09/16/17 12:31 Physical Exam Remarks Right lower extremity, mild strikethrough on splint, right ankle focused - medial and lateral incision well coapted with mandy intact. No erythema. No active drainage. Moderate edema noted. Good alignment and good stability. Left lower extremity, left ankle focused- mild pain lateral ankle good range of motion. Bilateral pedal pulses palpable bilateral cast nontender nondistended Assessment & Plan A/P Right ankle trimalleolar fracture, left ankle sprain, chronic left ankle injuries. Status post open reduction internal fixations Dr. Bhagat approximately 1 week- doing well. Bandage and splint changed or theater ordered to make a new splint continue nonweightbearing. [place] will remain in for at least 1 more week. We discussed signs and symptoms of a DVT, if any calf pain presents that she will notify us immediately on outpatient basis once discharged. I will defer to medicine and GI if the patient is at risk for increased bleeding by using DVT prophylaxis Xarelto. We will continue to follow patient while in house. Tobias Vance DPM Sep 16, 2017 14:54
[2017-09-16 16:00] VITALS: BP 105/50; PULSE 84; RESP 16; TEMP 98.6; O2SAT 95
[2017-09-16 20:00] VITALS: BP 118/58; PULSE 85; RESP 17; TEMP 98.8; O2SAT 95
[2017-09-16] MEDS: PANTOPRAZOLE SODIUM 40 MG VIAL IV PUSH SCH (21:31)
[2017-09-17] VITALS: BP 112/63; PULSE 82; RESP 17; TEMP 99; O2SAT 96
[2017-09-17] MEDS: ONDANSETRON HCL 4 MG/2 ML VIAL IV PUSH PRN ×2 (03:40→13:56)
[2017-09-17] MEDS: ALPRAZolam 0.5 MG TAB PO PRN ×2 (04:50→13:47)
[2017-09-17 05:37] LABS: HEMATOCRIT 27.5 % (35.0-46.0); HEMOGLOBIN 9.3 GM/DL (11.6-15.3)
[2017-09-17] MEDS: METHOCARBAMOL 500 MG TAB PO SCH ×3 (05:54→22:01)
[2017-09-17 07:21] VITALS: BP 109/67; PULSE 89; RESP 18; TEMP 98.8; O2SAT 94
[2017-09-17] MEDS: PANTOPRAZOLE SODIUM 40 MG VIAL IV PUSH SCH ×2 (08:40→22:03)
[2017-09-17] MEDS: DOCUSATE SODIUM 50 MG/SENNA 8.6 MG TAB PO SCH ×2 (08:41→22:01)
[2017-09-17] MEDS: GABAPENTIN 300 MG CAP PO SCH ×3 (08:41→16:49)
[2017-09-17 11:41] VITALS: BP 137/63; PULSE 88; RESP 18; TEMP 99.1; O2SAT 97
[2017-09-17] MEDS: fentaNYL 50 MCG/HR PATCH T-DERMAL SCH (12:01)
[2017-09-17] MEDS: REMOVE OLD DURAGESIC (FENTANYL) PATCH T-DERMAL SCH (12:01)
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
[2017-09-17] MEDS ORDERED: LACTULOSE SYRUP 20 GM/30 ML CUP PO ONE (12:30)
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
[2017-09-17 16:00] VITALS: BP 105/51; PULSE 79; RESP 18; TEMP 98.4; O2SAT 96
[2017-09-17 20:35] VITALS: BP 110/57; PULSE 102; RESP 16; TEMP 99.2; O2SAT 97
[2017-09-17] MEDS: BACITRACIN TOP OINT 15 GM TUBE TOP SCH (21:00)
--- NOTE | 2017-09-17 21:03 | HHI.PR ---
Subjective Remarks Patient seen bedside. Said she stepped on her splint and felt as if she displaced her ankle in the splint. Reports pain is well controlled. Objective Vital Signs Date Time Temp Pulse Resp B/P (MAP) Pulse Ox O2 Delivery O2 Flow Rate FiO2 09/17/17 16:00 98.4 79 18 105/51 (69) 96 09/17/17 11:41 99.1 88 18 137/63 (87) 97 09/17/17 07:21 98.8 89 18 109/67 (81) 94 09/17/17 00:00 99.0 82 17 112/63 (79) 96 09/16/17 21:25 Room Air I/O 09/16/17 09/16/17 09/16/17 09/17/17 09/17/17 09/17/17 07:00 15:00 23:00 07:00 15:00 23:00 Intake Total 480 ml 600 ml 460 ml 720 ml Output Total 1150 ml 1300 ml 2000 ml 2000 ml Balance -670 ml -700 ml -1540 ml -1280 ml Intake Oral 480 ml 600 ml 460 ml 720 ml Output Urine Total 1150 ml 1300 ml 2000 ml 2000 ml # Bowel Movements 0 0 Result Diagram: 09/17/17 0330 09/15/17 0342 Imaging Last Impressions Abdomen X-Ray 09/12/17 0000 Signed Impressions: Service Date/Time: Tuesday, September 12, 2017 21:55 - CONCLUSION: NG tube in antrum. Johan Basilio MD FACR Carotid Artery Ultrasound 09/10/17 0000 Signed Impressions: Service Date/Time: Sunday, September 10, 2017 13:13 - CONCLUSION: 1. Negative examination. Calixto Basilio MD Cervical Spine MRI 09/08/17 0000 Signed Impressions: Service Date/Time: Friday, September 08, 2017 14:58 - CONCLUSION: 1. At C5-6 broad-based posterior disc protrusion slightly worse on the right side results in mild AP canal stenosis and mild compression on the right hemicord. 2. At C4- 5 mild posterior disc bulge with small left paracentral protrusion results in a minimal impression on the left hemicord. Margarito Soriano MD Lower Extremity CT 09/07/17 0000 Signed Impressions: Service Date/Time: Thursday, September 07, 2017 10:09 - CONCLUSION: Trimalleolar fracture as described. Juan Alba MD Ankle X-Ray 09/07/17 0000 Signed Impressions: Service Date/Time: Thursday, September 07, 2017 21:05 - CONCLUSION: Successful ORIF. Jacoby Bolton MD Pelvis X-Ray [id number] Signed Impressions: Service Date/Time: August 18:15 - CONCLUSION: No acute disease. Jacoby Bolton MD Head CT [id number] Signed Impressions: Service Date/Time: August 18:33 - CONCLUSION: No acute disease. Jacoby Bolton MD Chest X-Ray [id number]/[id number] Signed Impressions: Service Date/Time: August 18:15 - CONCLUSION: No acute disease. Jacoby Bolton MD Chest CT [id number]/171819 Signed Impressions: Service Date/Time: August 18:37 - CONCLUSION: No acute disease. Jacoby Bolton MD Cervical Spine CT [id number]/[id number] Signed Impressions: Service Date/Time: August 18:33 - CONCLUSION: 1. No acute abnormality seen. 2. Decreased height and mild bulging at the C5-C6 level. The Jacoby Bolton MD Abdomen/Pelvis CT [id number]/171819 Signed Impressions: Service Date/Time: August 18:37 - CONCLUSION: No acute disease. Jacoby Bolton MD Procedures s/p right ankle ORIF Objective Remarks Splint clean, dry and intact. Alondra to medial and lateral malleoli of right ankle intact with no erythema noted or drainage noted. No clinical signs of infection. Medications and IVs Current Medications Medications (Trade) Dose Ordered Sig/Marika Route Start Time Stop Time Status Last Admin (Marilee-Colace) 2 tab BID PO 09/07/17 21:00 09/17/17 08:41 (Baciguent Oint) 1 applic Q12HR TOP 09/07/17 21:00 09/15/17 09:00 (Tylenol) 650 mg Q4H PRN PO 09/07/17 19:15 (Vasotec Inj) 1.25 mg Q6H PRN IV PUSH 09/07/17 19:15 (Lactulose Liq) 30 ml DAILY PRN PO 09/07/17 19:15 09/11/17 08:57 (Robaxin) 500 mg Q8HR PO 09/07/17 22:00 09/17/17 13:47 (Lovenox Inj) 40 mg Q24H SQ 09/08/17 07:00 Future hold 09/12/17 06:21 (Duragesic 50 Mcg Patch.72 Hr) 1 patch Q3D T-DERMAL 09/08/17 13:00 09/17/17 12:01 Miscellaneous Information 1 Q3D T-DERMAL 09/11/17 13:00 09/17/17 12:01 (Duoneb Neb) 1 ampule Q2HR NEB PRN NEB 09/10/17 14:00 (Zofran Inj) 4 mg Q4H PRN IV PUSH 09/12/17 20:45 09/17/17 13:56 (Xanax) 0.5 mg Q8H PRN PO 09/15/17 13:00 09/17/17 13:47 (Neurontin) 600 mg TID PO 09/16/17 13:00 09/17/17 16:49 (Roxicodone) 10 mg Q3HR PRN PO 09/16/17 11:00 09/17/17 16:51 (Protonix Inj) 40 mg Q12H IV PUSH 09/16/17 21:00 09/17/17 08:40 (Desyrel) 100 mg HS PO 09/17/17 21:00 Assessment and Plan Assessment and Plan 41 year old female s/p right ankle ORIF Patient examined and evaluated with all questions answered Xeroform placed to medial and lateral ankle Splint placed with cast padding and IDRIS Patient states the splint feels better Is refusing additional Xray at this time Encouraged continued NWB to Luz Maria Frausto DPM Sep 17, 2017 21:03
[2017-09-17] MEDS: traZODone HCL 100 MG TAB PO SCH (22:01)
[2017-09-18] VITALS (7 sets, daily range): BP systolic 90–111; BP diastolic 53–64; PULSE 80–101; RESP 16–19; TEMP 98.2–98.8; O2SAT 95–98
[2017-09-18] MEDS: METHOCARBAMOL 500 MG TAB PO SCH (06:18)
[2017-09-18] MEDS: ENOXAPARIN SODIUM 40 MG/0.4 ML SYRINGE SQ SCH (06:18)
[2017-09-18] MEDS: DOCUSATE SODIUM 50 MG/SENNA 8.6 MG TAB PO SCH ×2 (08:49→21:19)
[2017-09-18] MEDS: ONDANSETRON HCL 4 MG/2 ML VIAL IV PUSH PRN (08:49)
[2017-09-18] MEDS: GABAPENTIN 300 MG CAP PO SCH ×3 (08:49→17:58)
[2017-09-18] MEDS: PANTOPRAZOLE SODIUM 40 MG VIAL IV PUSH SCH ×2 (08:49→21:19)
[2017-09-18] MEDS: BACITRACIN TOP OINT 15 GM TUBE TOP SCH ×2 (08:55→21:23)
[2017-09-18] MEDS ORDERED: SCOPOLAMINE 1.5 MG PATCH T-DERMAL ONE (10:30)
[2017-09-18] MEDS ORDERED: NEUR400C PO (10:33)
[2017-09-18] MEDS ORDERED: ZOFR4TAB3 SL (10:33)
[2017-09-18] MEDS ORDERED: PERC5TAB12 PO (10:33)
[2017-09-18] MEDS ORDERED: PROT40TA PO (10:33)
[2017-09-18] MEDS: ALPRAZolam 0.5 MG TAB PO PRN ×2 (10:46→21:19)
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
[2017-09-18] MEDS ORDERED: BISACODYL 10 MG SUPP RECTAL ONE (17:00)
[2017-09-18] MEDS: traZODone HCL 100 MG TAB PO SCH (21:19)
[2017-09-19 03:55] VITALS: BP 92/59; PULSE 98; RESP 17; TEMP 98.6; O2SAT 96
[2017-09-19 05:51] VITALS: BP 103/54; PULSE 110; RESP 18; O2SAT 98
[2017-09-19] MEDS ORDERED: BISACODYL 10 MG SUPP RECTAL ONE (07:45)
[2017-09-19] MEDS ORDERED: BISACODYL EC 5 MG TABEC PO ONE (07:45)
[2017-09-19 08:00] VITALS: BP 93/56; PULSE 98; RESP 16; TEMP 98.1; O2SAT 96
[2017-09-19] MEDS ORDERED: MAGNESIUM HYDROXIDE SUSP 30 ML CUP PO SCH (09:00)
[2017-09-19] MEDS ORDERED: LACTULOSE SYRUP 20 GM/30 ML CUP PO SCH (09:00)
[2017-09-19] MEDS: DOCUSATE SODIUM 50 MG/SENNA 8.6 MG TAB PO SCH (09:04)
[2017-09-19] MEDS: ALPRAZolam 0.5 MG TAB PO PRN ×2 (09:04→15:58)
[2017-09-19] MEDS: GABAPENTIN 300 MG CAP PO SCH ×2 (09:04→11:44)
[2017-09-19] MEDS: PANTOPRAZOLE SODIUM 40 MG VIAL IV PUSH SCH (09:10)
[2017-09-19] MEDS ORDERED: WALKER WHEELS/F1 MIS (11:50)
[2017-09-19 12:00] VITALS: BP 120/50; PULSE 116; RESP 18; TEMP 98.7; O2SAT 97
[2017-09-19] MEDS: ONDANSETRON HCL 4 MG/2 ML VIAL IV PUSH PRN (13:41)
[2017-09-19 16:00] VITALS: BP 92/50; PULSE 86; RESP 18; TEMP 98; O2SAT 95
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
== END 2017-09-19 17:21 | disposition home or self-care (01) | DRG 492 ==
LOC: NEPI 18:15 → MERGE 18:43 → EDBD 18:43 → NEDA 18:43 → NEPHCDU 23:13 → N06A 09-07 15:51 → N03A 09-13 00:47 → N06A 09-15 11:47
PROVIDERS: ADMIT Surgery Trauma Surgery; ATTEND Surgery Trauma Surgery
PROC: 0QSG04Z Reposition Right Tibia with Internal Fixation Device, Open Approach (ICD-10-PCS; 2017-09-07)
PROC: 0MQQ0ZZ Repair Right Ankle Bursa and Ligament, Open Approach (ICD-10-PCS; 2017-09-07)
PROC: 0SSF04Z Reposition Right Ankle Joint with Internal Fixation Device, Open Approach (ICD-10-PCS; 2017-09-07)
PROC: 0QSJ04Z Reposition Right Fibula with Internal Fixation Device, Open Approach (ICD-10-PCS; principal; 2017-09-07 19:31)
PROC: 0W3P8ZZ Control Bleeding in Gastrointestinal Tract, Via Natural or Artificial Opening Endoscopic (ICD-10-PCS; 2017-09-13)
PROC: 0W3P8ZZ Control Bleeding in Gastrointestinal Tract, Via Natural or Artificial Opening Endoscopic (ICD-10-PCS; 2017-09-14)
PROC: 30233N1 Transfusion of Nonautologous Red Blood Cells into Peripheral Vein, Percutaneous Approach (ICD-10-PCS; 2017-09-14)
DX: S82.851A Displaced trimalleolar fracture of right lower leg, initial encounter for closed fracture (principal); K25.4 Chronic or unspecified gastric ulcer with hemorrhage; M48.02 Spinal stenosis, cervical region; S06.0X9A Concussion with loss of consciousness of unspecified duration, initial encounter; S14.129A Central cord syndrome at unspecified level of cervical spinal cord, initial encounter; S93.402A Sprain of unspecified ligament of left ankle, initial encounter; S93.421A Sprain of deltoid ligament of right ankle, initial encounter; S93.431A Sprain of tibiofibular ligament of right ankle, initial encounter; M50.122 Cervical disc disorder at C5-C6 level with radiculopathy; F17.210 Nicotine dependence, cigarettes, uncomplicated; F43.10 Post-traumatic stress disorder, unspecified; F43.21 Adjustment disorder with depressed mood; G89.4 Chronic pain syndrome; I10 Essential (primary) hypertension; G47.00 Insomnia, unspecified; V49.9XXA Car occupant (driver) (passenger) injured in unspecified traffic accident, initial encounter; Y92.410 Unspecified street and highway as the place of occurrence of the external cause; Z85.41 Personal history of malignant neoplasm of cervix uteri
CPT/HCPCS: 29515; 36430; 51702; 70450; 71045; 71260; 72125; 72141; 72170; 73600; 73610; 73700; 74018; 74177; 76000; 80048; 80053; 80307; 81001; 84702; 85014; 85018; 85025; 85027; 85610; 85730; 86850; 86900; 86901; 86920; 87086; 93880; 94150; 96374; 99291; A0431-QM-SH; A0436-QM-SH; C1713; C9113; G0390; J0131; J0171; J0330; J0690; J1100; J1170; J1650; J1885; J2060; J2175; J2270; J2370; J2405; J2550; J3010; J7120; L0172; L2114; P9016; Q9967